=== PATIENT | male | born 1985 | race Caucasian/White ===

== ENCOUNTER → 2022-07-08 14:41 | Outpatient (CLI) | payer OTHER, SELFPAY ==
--- NOTE | ~2022-07-08 | MR_ITS ---
EXAMINATION: MR knee LT wo con DATE: 07/08/2022 15:19 INDICATION: Left knee joint effusion. Left knee pain. TECHNIQUE: Magnetic resonance imaging (MRI) of the left knee was performed without intravenous contra st. Sequences included axial PD-weighted FS FSE, coronal PD-weighted FSE and PD-weighted FS FSE, sagi ttal PD-weighted FSE, and sagittal T2-weighted FS FSE. COMPARISON: None. FINDINGS: Medial compartment: Medial meniscus is normal. There is shallow partial-thickness cartilage loss of femoral condyle invol ving the central articular surface. There is shallow partial-thickness cartilage loss of tibial condy le. Marginal osteophytes are noted. Lateral compartment: There is an undersurface horizontal tear of body and posterior horn of lateral meniscus. There is par tial-thickness cartilage loss of tibial condyle, deep at the posterior articular surface where there is mild subchondral edema-like signal intensity. There is partial-thickness cartilage loss of femoral condyle, deep at the central articular surface where there is an intra-articular osteophyte. There i s full-thickness cartilage loss of femoral condyle involving the posterior articular surface. Osteoph ytes are noted. Patellofemoral compartment: There is full-thickness cartilage loss of patellar median ridge and medial facet with undermining of cartilage at the medial facet and mild subchondral edema-like marrow signal intensity. There is full- thickness cartilage loss involving the medial, central, and lateral trochlea with intra-articular ost eophytes. Marginal osteophytes are noted. Ligaments and tendons: The anterior and posterior cruciate ligaments are normal. There are changes of prior sprains of media l collateral ligament and fibular collateral ligament characterized by thickening and increased signa l intensity proximally. There is mild patellar tendinopathy. Fluid: There is a small knee joint effusion. There is trace fluid in a Brady's cyst. There is mild superfici al infrapatellar bursitis. IMPRESSION: 1. 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 2. Tear of lateral meniscus. 3. Small knee joint effusion. 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 2. Tear of lateral meniscus. 3. Small knee joint effusion.
--- NOTE | ~2022-07-08 | CT_ITS ---
EXAMINATION: CT abdomen pelvis wo con DATE: 07/08/2022 15:02 INDICATION: Left lower quadrant abdominal pain. TECHNIQUE: Computed tomography (CT) of the abdomen and pelvis was performed without intravenous contr ast. Automated exposure control and iterative reconstruction technique were employed. The dose-length product was 405.50 mGy-cm. COMPARISON: None. FINDINGS: The visualized portions of the lung bases demonstrate calcified left lung nodules, consiste nt with old granulomatous disease. No pleural effusion. The heart size is normal. No pericardial effu lynne. The liver and gallbladder are normal. Calcifications in the spleen are consistent with old gran ulomatous disease. The pancreas, adrenal glands, and kidneys are normal. There is no urolithiasis. Th ere are no dilated loops of bowel. The appendix is not visualized. There are no pathologically enlarg ed lymph nodes. There is no free intraperitoneal fluid. There is mild lumbar spondylosis. IMPRESSION: 1. No etiology for the patient's symptoms. 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
== END ==
PROVIDERS: PCP Pediatrics; Visit Provider Family Medicine
DX: R10.32 Left lower quadrant pain (principal); R10.2 Pelvic and perineal pain; R11.10 Vomiting, unspecified; R35.0 Frequency of micturition; M25.562 Pain in left knee; M25.462 Effusion, left knee; S83.282A Other tear of lateral meniscus, current injury, left knee, initial encounter; T14.90XA Injury, unspecified, initial encounter; R06.5 Mouth breathing; Z00.00 Encounter for general adult medical examination without abnormal findings
CPT/HCPCS: 73721; 74176